=== PATIENT | female | born 1955 | race Caucasian/White ===

== ENCOUNTER 2024-02-09 21:53 | Emergency (ER) | payer MEDICARE, OTHER, SELFPAY ==
[2024-02-09 21:55] VITALS: BP 133/78
[2024-02-09 22:25] VITALS: BP 144/72
--- NOTE | 2024-02-09 22:30 | ED.GENMED ---
History of Present Illness
General
Chief Complaint: Abdominal Pain
Source: patient
Exam Limitations: none
Time Seen by Provider: 02/09/24 22:17
History of Present Illness
History of Present Illness:
This is a 68 year old female that comes in with c/o fever. States that on Thursday she stared with a fever and was in bed. States that she went to see the PCP today at 6pm. States that at that time she had a fever of 102.9. States that she also had
some right lower abd tenderness so he told her to come to the hospital for a CT scan. States that she tested negative for COVID and Influenza. States that she has had fever with chills, cough and a headache. Denies any chest pain, SOB, nausea,
vomiting, diarrhea, dizziness, urinary burning.
Past History
Past History
ED Past Medical History: None; Negative Asthma, HTN, Hypercholesterolemia or NIDDM
ED Past Surgical History: Orthopedic (Bunionectomy right foot)
Social History
Tobacco: Non-smoker
Alcohol: None
Personal: Single
Living: alone
Review of Systems
Review of Systems
All Other Systems: ROS reviewed and negative except as documented in HPI and ROS
Constitutional: Reports fever and chills
EENT: Reports no symptoms
Respiratory: Reports cough; Denies trouble breathing
Cardiac: Reports no symptoms; Denies chest pain
ABD/GI: Reports abdominal pain; Denies nausea, vomiting or diarrhea
: Reports no symptoms; Denies dysuria, frequency or urgency
Musculoskeletal: Reports no symptoms
Skin: Reports no symptoms
Neurological: Reports headache; Denies dizzy
Psychiatric: Reports no symptoms
Phy Exam
General Physical Exam
General Presentation: no apparent distress
General age: appears stated age
General Skin: warm and dry
General Habitus: normal
General Mental: alert
General Hydration: dry mucous membranes
ENT Exam
ENT Exam: TM's normal, pharynx normal and neck supple
Eye Exam
Eye Exam: EOMI
Cardiovascular Exam
Cardiovascular Exam: regular rate/rhythm, no edema, no murmur and normal peripheral pulses
Pulmonary Exam
Pulmonary Exam: no respiratory distress, chest non tender, no rhonchi, no wheezing and other (Crackles right base, Dry cough noted)
Gastrointestinal Exam
Gastrointestinal Exam: normal bowel sounds, non tender, soft, no organomegaly, no pulsatile mass and non distended
Musculoskeletal Exam
Musculoskeletal Exam: full ROM and no edema
Skin Exam
Skin Exam: normal color, warm/dry, no rash and no petechia
Psychiatric Exam
Psychiatric Exam: normal mood/affect
Course
Orders/Labs/Results
Orders:
Orders
02/09/24 22:30
0.9% Sodium Chloride 1000 ml [Nss] 1,000 ml IV BOLUS
CR Chest - 2 Views Urgent
Comment:
Reason For Exam: Cough, fever
02/09/24 22:37
Complete Blood Count/With Diff Urgent
Comprehensive Metabolic Panel Urgent
02/10/24 00:31
Doxycycline [Vibramycin] 100 mg PO NOW STA
Abnormal Lab Results
02/09/24
22:37
RBC 3.67 L 10^6/uL
(4.20-5.40)
Hgb 11.4 L g/dL
(12.0-16.0)
Hct 33.0 L %
(37.0-47.0)
MCH 31.1 H pg
(27.0-31.0)
Absolute Neuts (auto) 8.5 H 10^3/uL
(1.4-6.5)
Absolute Lymphs (auto) 1.1 L 10^3/uL
(1.2-3.4)
Absolute Monos (auto) 0.7 H 10^3/uL
(0.1-0.6)
Neutrophils % 82.0 H %
(42.2-75.2)
Lymphocytes % 10.4 L %
(20.5-51.1)
Sodium 131 L mmol/L
(135-145)
Chloride 96 L mmol/L
(98-107)
Carbon Dioxide 20 L mmol/L
(22-30)
Glucose 111 H mg/dl
(70-99)
AST 40 H U/L
(14-36)
02/09/24 22:37
02/09/24 22:37
H/H slighlty low. Sodium slightly low. Chloride low. carbon dioxide low. Glucose nonfasting. AST mildly elevated.
Vital Signs
Initial and Last Documented VS:
Initial Vital Signs
Temp Pulse Resp BP Pulse Ox
100.6 F H 90 20 133/78 96
02/09/24 21:55 02/09/24 21:55 02/09/24 21:55 02/09/24 21:55 02/09/24 21:55
Last Documented Vital Signs
Temp Pulse Resp BP Pulse Ox
100.6 F H 90 20 141/67 97
02/09/24 21:55 02/09/24 21:55 02/09/24 21:55 02/09/24 23:00 02/09/24 23:01
MDM/Problems Addressed
Differential Diagnosis Includes:
Pneumonia, Viral illness
MDM/Problems Addressed:
This is a 68 year old female that comes in with c/o fever. State that she started on Thursday with a fever and has been in bed most of the weekend. States that today she went to see the PCP and was told to come to the ER. States that at that time
she had a fever of 102.9 and some abd discomfort. States that they were concerned for appendicitis.
Will check labs and get chest x-ray. Patient is nontender when palpation of the abd. Will check X-ray first and if negative then get CT scan.
Back into see patient. Explained that she has a right lower lobe Pneumonia. Will start patient on antibiotic and give her first dose here. Patient to follow up with the family doctor for recheck. Patient to increase her water intake to 8-8oz glasses
daily. Patient to use Tylenol or Ibuprofen for fever. Return with fever that is not controlled, increased SOB or any other concerns.
Chronic conditions affecting care:
NA
Acute Exacerbation and/or Progression of Chronic Illness:
NA
*Radiology
Radiology exam reviewed: preliminary read by ED provider (Chest- Right lower lobe Pneumonia. )
*Pulse Oximetry
Patient hypoxic: no
*EKG
Interpreted by ED Provider?: NA
Rate: EKG- N/A
*Nuclear Waste Process Operator Interpretation
Rate: Nuclear Waste Process Operator- N/A
*Critical Care Note
Total Time (30-74mins, 75-104mins- exclusive of procedures): Not Applicable
ED Attending Note
-
Portions of this chart may have been created with voice recognition software.� Occasional wrong word or��sound alike� substitutions may have occurred due to the inherent limitations of voice recognition software.
Discharge Plan
Departure
Patient Disposition: Home (Routine Discharge)
Date of Disposition: 02/10/24
Time of Disposition: 00:33
Patient with high blood pressure during this ER visit?: Yes
Condition: Good
Covid-19: Not Applicable
Discharge Problem:
Pneumonia
Instructions: Community-Acquired Pneumonia, Adult (DC), BLOOD PRESSURE
Prescriptions:
New
doxycycline hyclate 100 mg capsule
100 mg PO BID Qty: 19 0RF
Referrals:
Yonathan Lopez MD [Family Provider] - Follow up in 5-7 days
Activity Restrictions/Additional Instructions:
As discussed, your chest x-ray shows that you have right lower lobe Pneumonia. Please increase your water intake to 8-8oz glasses daily. You have been given your first dose of antibiotic here and a prescription has been sent to your Pharmacy. Please
use Tylenol or Ibuprofen for any fever. Follow up with the family doctor in the next 5-7 days for recheck. IF YOU HAVE FEVER THAT IS NOT CONTROLLED, SHORTNESS OF BREATH, OR YOU JUST FEEL WORSE, PLEASE RETURN TO THE EMERGENCY ROOM.
Interventions
Interventions:
*Risk Screen - Suicide Last Done: 02/09/24 21:55
*General Assessment Last Done: 02/09/24 21:55
*Neglect/Abuse Screening Last Done: 02/09/24 21:55
ED- Fall Risk Assessment Last Done: 02/09/24 22:38
*ED COVID-19 Vaccine History Last Done: 02/09/24 22:38
TS-Pobltf-Niktfyfcoh Assessment Last Done: 02/09/24 22:40
Discharge Date and Time
Print Language: ARMENIAN
[2024-02-09] MEDS: NSS 1000 IV (22:36)
[2024-02-09 22:38] VITALS: BMI 22.8
[2024-02-09 22:44] LABS: % Basophils 0.2 % (0-2); % Immature Granulocytes 0.4 % (0-0.5); % Lymphocytes 10.4 % (20.5-51.1); Absolute Lymphocytes 1.1 10^3/uL (1.2-3.4); Absolute Monocytes 0.7 10^3/uL (0.1-0.6); Absolute Neutrophils 8.5 10^3/uL (1.4-6.5); Hemoglobin 11.4 g/dL (12.0-16.0); Mean Corp Hgb Conc. 34.5 g/dL (33.0-37.0); Mean Corpuscular Hgb 31.1 pg (27.0-31.0); Mean Corpuscular Volume 89.9 fL (81.0-99.0); Mean Platelet Volume 9.7 fL (7.4-10.4); Nucleated Red Blood Cells % 0 %; Platelet Count 218 10^3/uL (130-400); Red Blood Cell Count 3.67 10^6/uL (4.20-5.40); Red Cell Dist. Width 12.5 % (11.5-14.5); White Blood Cell Count 10.4 10^3/uL (4.8-10.8)
[2024-02-09 22:58] LABS: ALT (SGPT) 26 U/L (0-35); AST (SGOT) 40 U/L (14-36); Albumin 4.3 g/dl (3.5-5.0); Alkaline Phosphatase 59 U/L (38-126); Blood Urea Nitrogen 10 mg/dl (7-17); Calcium 9.1 mg/dl (8.4-10.2); Carbon Dioxide 20 mmol/L (22-30); Chloride 96 mmol/L (98-107); Estimated Creatinine Clearance 62 ml/min; Glucose 111 mg/dl (70-99); Potassium 4.6 mmol/L (3.5-5.1); Sodium 131 mmol/L (135-145); Total Bilirubin 0.5 mg/dl (0.2-1.3); Total Protein 7.1 g/dl (6.3-8.2); eGFR > 60.00
[2024-02-09 23:00] VITALS: BP 141/67
[2024-02-10] MEDS: VIBRAMYCIN 100 MG PO (00:52)
== END 2024-02-10 01:00 | disposition home or self-care (01) ==
LOC: EMR 21:53
PROVIDERS: Clinical Nurse Specialist Family Health; EMERGENCY PHYSICIAN Student in an Organized Health Care Education/Training Program; FAMILY PHYSICIAN Student in an Organized Health Care Education/Training Program
DX: J18.9 Pneumonia, unspecified organism (principal)
CPT/HCPCS: 99283; 96360; 71046; 80053; 85025

== ENCOUNTER → 2024-02-29 11:59 | Outpatient (REF) | payer MEDICARE, OTHER, SELFPAY | LOC: RAD 11:59 | PROVIDERS: ATTENDING PHYSICIAN Physician Assistant | DX: J18.9 Pneumonia, unspecified organism (principal) | CPT/HCPCS: 71046 ==

== ENCOUNTER → 2025-01-18 10:07 | Outpatient (REF) | payer MEDICARE, OTHER, SELFPAY | LOC: WDC 10:07 | PROVIDERS: ATTENDING PHYSICIAN Student in an Organized Health Care Education/Training Program | DX: Z12.31 Encounter for screening mammogram for malignant neoplasm of breast (principal); Z13.820 Encounter for screening for osteoporosis | CPT/HCPCS: 77063; 77067; 77080 ==